=== PATIENT | male | born 1990 | race American Indian/Alaskan Native ===

== ENCOUNTER 2019-08-07 22:47 | Emergency (ER) | payer OTHER, BC ==
[2019-08-07 22:55] VITALS: BP 112/71
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
== END 2019-08-07 23:39 | disposition home or self-care (01) ==
LOC: ED 22:47
DX: R07.89 Other chest pain (principal); V49.49XA Driver injured in collision with other motor vehicles in traffic accident, initial encounter; Y93.89 Activity, other specified; Y92.410 Unspecified street and highway as the place of occurrence of the external cause; Y99.8 Other external cause status